=== PATIENT | female | born 1975 | race Caucasian/White ===

== ENCOUNTER 2017-11-23 21:09 | Emergency (ER) | payer BC ==
--- NOTE | 2017-11-23 21:31 | Emergency Department Record ---
History of Present Illness - General Chief complaint: Pain Stated complaint: RT KNEE PAIN/SELLING, NUMBNESSIN TOES Time Seen by Provider: 11/23/17 21:10 Source: Patient Mode of Arrival: Ambulatory Limitations: No limitations - History of Present Illness Initial comments: 42 yo female presents to ED for pain and swelling to the right knee for 1 week. Patient denies injury, but does report a history of arthritis. Patient also denies fevers, chills, or previous surgery to the knee joint. Patient reports that she has been able to ambulate on the knee however it is painful. Patient denies history of Gout.. MD Complaint: Joint pain Onset/Timin -: Week(s) Location: Right, Knee History of Same: No -: Yes Arthralgia Severity scale (1-10): 7 Consistency: Constant, Getting worse Improves with: Rest Worsens with: Walking, Weight bearing Associated Symptoms: Other - Related Data Previous Rx's Medication Instructions Recorded Naproxen [Naprosyn] 500 mg PO Q12H #30 tab. 11/23/17 Allergies Allergy/AdvReac Type Severity Reaction Status Date / Time acetaminophen [From Vicodin] Allergy SWELLING Verified 11/23/17 21:14 (GENERAL) codeine Allergy VOMITING Verified 11/23/17 21:14 hydrocodone [From Vicodin] Allergy SWELLING Verified 11/23/17 21:14 (GENERAL) sulfamethoxazole Allergy HIVES Verified 11/23/17 21:14 [From Bactrim] Tetracyclines Allergy SWELLING Verified 11/23/17 21:14 (GENERAL) trimethoprim [From Bactrim] Allergy HIVES Verified 11/23/17 21:14 Travel Screening - Travel/Exposure Within Last 30 Days Have you traveled within the last 30 days?: No - Travel Symptoms Symptom Screening: None Review of Systems Constitutional: Denies: Chills, Fever, Malaise, Night sweats Eyes: Denies: Eye discharge, Eye pain ENT: Denies: Congestion, Ear pain, Epistaxis Respiratory: Denies: Cough, Dyspnea Cardiovascular: Denies: Chest pain, Dyspnea on exertion Endocrine: Denies: Fatigue, Heat or cold intolerance Gastrointestinal: Denies: Abdominal pain, Nausea, Vomiting Genitourinary: Denies: Incontinence, Retention Musculoskeletal: Reports: Arthralgia, Joint swelling. Denies: Back pain, Gout Skin: Denies: Bruising, Change in color Neurological: Denies: Abnormal gait, Confusion, Headache, Seizure Psychiatric: Denies: Anxiety Hematological/Lymphatic: Denies: Anemia, Blood Clots Past Medical History - SOCIAL HISTORY Smoking Status: Current every day smoker - RESPIRATORY Hx Respiratory Disorders: Yes Hx COPD: Yes Hx Sleep Apnea: Yes Hx of CPAP: No - CARDIOVASCULAR Hx Cardio Disorders: Yes Hx Hypertension: Yes Comment:: high cholesterol ; heart murmurs - NEURO Hx Neuro Disorders: Yes Hx Dizziness: Yes (Ear issues with fluid build up; KAKE) Hx Headaches: Yes - GI Hx GI Disorders: Yes Hx Irritable Bowel: Yes - Hx Genitourinary Disorders: No - ENDOCRINE Hx Endocrine Disorders: No - MUSCULOSKELETAL Hx Musculoskeletal Disorders: Yes Hx Arthritis: Yes - PSYCH Hx Psych Problems: Yes Hx Anxiety: Yes Hx Depression: Yes - HEMATOLOGY/ONCOLOGY Hx Hematology/Oncology Disorders: No Family Medical History Any Significant Family History?: Yes Hx Cancer: Grandparents Hx Heart Disease: Mother Hx HTN: Father, Mother, Grandparents Physical Exam - General General Appearance: Alert, Oriented x3, Cooperative, Mild distress Limitations: No limitations - Head Head exam: Atraumatic, Normocephalic, Normal inspection Head exam detail: negative: Abrasion, Contusion, Hollis's sign, General tenderness, Hematoma, Laceration - Eye Eye exam: Normal appearance. negative: Conjunctival injection, Periorbital swelling, Periorbital tenderness, Scleral icterus - ENT Ear exam: negative: Auricular hematoma, Auricular trauma Nasal Exam: negative: Active bleeding, Discharge, Dried blood, Foreign body Mouth exam: negative: Drooling, Laceration, Muffled voice, Tongue elevation - Neck Neck exam: Normal inspection. negative: Meningismus, Tenderness - Respiratory Respiratory exam: Normal lung sounds bilaterally. negative: Rales, Respiratory distress, Rhonchi, Stridor - Cardiovascular Cardiovascular Exam: Regular rate, Normal rhythm, Normal heart sounds Peripheral Pulses: 3+: Dorsalis Pedis (R) - GI/Abdominal GI/Abdominal exam: Soft. negative: Rebound, Rigid, Tenderness - Rectal Rectal exam: Deferred - exam: Deferred - Extremities Extremities exam: Joint swelling, Tenderness, Other (Mild effusion present to the right knee, no erythema or evidence for septic joint. No calf pain or lower extremity edema. Anterior drawer/posterior drawer tests are negative. ) . negative: Calf tenderness, Pedal edema - Back Back exam: Denies: CVA tenderness (R), CVA tenderness (L) - Neurological Neurological exam: Alert, Oriented X3 - Psychiatric Psychiatric exam: Normal affect, Normal mood - Skin Skin exam: Normal color. negative: Abrasion Type of lesion: negative: abrasion Course Vital Signs 11/23/17 21:15 Temperature 98.4 F Pulse Rate 88 Respiratory 16 Rate Blood Pressure 153/93 Pulse Ox 96 - Reevaluation(s) Reevaluation #1: 11/23/17 21:35 MDM: Patient was seen and examined, no evidence for septic joint on examination. Mild-moderate effusion present. Ligaments are stable on examination. No traumatic injury history, radiographs are unlikely to be of benefit. Furthermore, laboratory studies are unlikely to be of benefit as there is no clinical suspicion for infection. Will place in knee immobilizer with Rx for Naprosyn for probable knee inflammation with instructions to follow-up with her PCP for possible ultrasound to exclude popliteal bursitis. Disposition Disposition: Discharge Clinical Impression: Knee effusion, right Disposition: Home, Self-Care Condition: (2) Stable Instructions: Swollen Knee Joint (ED) Additional Instructions: Return to ED if your symptoms worsen or if you have any concerns. Naprosyn as directed. Follow-up with your family doctor in 3-5 days as directed for possible ultrasound to evaluate for popliteal bursitis. Prescriptions: Naproxen [Naprosyn] 500 mg PO Q12H #30 tab.dr Forms: Patient Portal Access Time of Disposition: 21:30 Quality - Quality Measures Quality Measures: N/A - Blood Pressure Screening Does Patient Have Any of the Following: No Blood Pressure Classification: Hypertensive Reading Systolic Measurement: 153 Diastolic Measurement: 93 Screening for High Blood Pressure: < First Hypertensive BP, F/U Documented > [ [id number]] First Hypertensive Follow-up Interventions: Referral to alternative/primary care provider.
== END 2017-11-23 21:46 | disposition home or self-care (01) ==
LOC: ER 21:09
DX: M25.461 Effusion, right knee (principal); R20.0 Anesthesia of skin; J44.9 Chronic obstructive pulmonary disease, unspecified; F17.210 Nicotine dependence, cigarettes, uncomplicated
CPT/HCPCS: 99282

== ENCOUNTER 2018-01-04 12:33 | Emergency (ER) | payer BC ==
--- NOTE | 2018-01-04 13:08 | Emergency Department Record ---
History of Present Illness - General Chief Complaint: Cough Stated Complaint: LIGHT HEADED,FEVER,COUGH,COPD Time Seen by Provider: 01/04/18 13:00 Source: Patient Mode of Arrival: Ambulatory Limitations: No limitations - History of Present Illness Initial Comments: The patient is here due to a cough and congestion with a runny nose for 4-5 days. She denies any fever, chills, SOB, ARGENIS, or CP. MD Complaint: Cough, Nasal congestion, Rhinorrhea Onset/Timin -: Days(s) - Related Data Home Medications Medication Instructions Recorded Confirmed Last Taken Albuterol Sulfate 0.083% [Neb] 3 ml NEB .EVERY 4-6 HOURS PRN 01/04/18 01/04/18 01/04/18 Albuterol Sulfate [Proair Hfa] 1 - 2 puff IH .EVERY 4-6 HOURS PRN 01/04/1801/0401/04/18 Atorvastatin Calcium [Lipitor] 10 mg PO DAILY 01/04/18 01/04/18 Unknown Dicyclomine HCl 10 mg PO DAILY 01/04/18 01/04/18 Unknown Fluticasone/Salmeterol [Advair 1 each IH BID 01/04/18 01/04/18 01/04/18 100-50 Diskus] Lisinopril 10 mg PO DAILY 01/04/18 01/04/18 Unknown Topiramate [Topamax] 100 mg PO DAILY 01/04/18 01/04/18 Unknown Previous Rx's Medication Instructions Recorded Naproxen [Naprosyn] 500 mg PO Q12H #30 tab. 11/23/17 Azithromycin [Zithromax] 250 mg PO ASDIR #6 tab 01/04/18 Allergies Allergy/AdvReac Type Severity Reaction Status Date / Time acetaminophen [From Vicodin] Allergy SWELLING Verified 01/04/18 12:49 (GENERAL) codeine Allergy VOMITING Verified 01/04/18 12:49 hydrocodone [From Vicodin] Allergy SWELLING Verified 01/04/18 12:49 (GENERAL) sulfamethoxazole Allergy HIVES Verified 01/04/18 12:49 [From Bactrim] Tetracyclines Allergy SWELLING Verified 01/04/18 12:49 (GENERAL) trimethoprim [From Bactrim] Allergy HIVES Verified 01/04/18 12:49 Travel Screening - Travel/Exposure Within Last 30 Days Have you traveled within the last 30 days?: No Review of Systems Constitutional: Reports: Malaise. Denies: Chills, Fever Eyes: Denies: Eye discharge ENT: Reports: Congestion Respiratory: Reports: Cough. Denies: Dyspnea Past Medical History - SOCIAL HISTORY Smoking Status: Current every day smoker Alcohol Use: None Drug Use: None - RESPIRATORY Hx Respiratory Disorders: Yes Hx Bronchitis: Yes Hx COPD: Yes Hx Sleep Apnea: Yes Hx of CPAP: No - CARDIOVASCULAR Hx Cardio Disorders: Yes Hx Hypertension: Yes Comment:: high cholesterol ; heart murmurs - NEURO Hx Neuro Disorders: Yes Hx Dizziness: Yes Hx Headaches: Yes - GI Hx GI Disorders: Yes Hx Irritable Bowel: Yes - Hx Genitourinary Disorders: No - ENDOCRINE Hx Endocrine Disorders: No - MUSCULOSKELETAL Hx Musculoskeletal Disorders: Yes Hx Arthritis: Yes - PSYCH Hx Psych Problems: Yes Hx Anxiety: Yes Hx Depression: Yes - HEMATOLOGY/ONCOLOGY Hx Hematology/Oncology Disorders: No Family Medical History Any Significant Family History?: Yes Hx Cancer: Grandparents Hx Heart Disease: Mother Hx HTN: Father, Mother, Grandparents Physical Exam - General General Appearance: Alert, Oriented x3, Cooperative, No acute distress - Head Head exam: Atraumatic, Normocephalic, Normal inspection - Eye Eye exam: Normal appearance, PERRL, EOMI - ENT ENT exam: Normal exam, Mucous membranes moist, Normal external ear exam, Normal orophraynx, TM's normal bilaterally Throat exam: Normal inspection. negative: Tonsillar erythema, Tonsillar exudate , R peritonsillar mass, L peritonsillar mass - Neck Neck exam: Normal inspection, Full ROM. negative: Lymphadenopathy, Meningismus , Tenderness - Respiratory Respiratory exam: Normal lung sounds bilaterally. negative: Respiratory distress - Cardiovascular Cardiovascular Exam: Regular rate, Normal rhythm, Normal heart sounds - GI/Abdominal GI/Abdominal exam: Soft, Normal bowel sounds. negative: Tenderness - Extremities Extremities exam: Normal inspection, Full ROM, Normal capillary refill. negative: Tenderness - Neurological Neurological exam: Alert. negative: Motor sensory deficit Course Vital Signs 01/04/18 12:45 Temperature 98.5 F Pulse Rate 86 Respiratory 18 Rate Blood Pressure 167/103 Pulse Ox 97 - Reevaluation(s) Reevaluation #1: I did discuss the xrays with the patient and the need for F/U if not better. 01/04/18 14:04 Medical Decision Making - Data Complexity MDM Data: X-Ray Ordered and/or Reviewed - Radiology Data Radiology results: Report reviewed (CXR: Neg) Disposition Disposition: Discharge Clinical Impression: Bronchitis Disposition: Home, Self-Care Condition: (2) Stable Instructions: Cold Symptoms (ED) Additional Instructions: Please take the Zpak as directed and use an OTC cough and cold medicine. Please see your family doctor in 3 days if not better and return to the ER for any worsening symptoms. Prescriptions: Azithromycin [Zithromax] 250 mg PO ASDIR #6 tab Forms: Patient Portal Access Time of Disposition: 14:07 Quality - Quality Measures Quality Measures: N/A - Blood Pressure Screening View Details: Yes Does Patient Have Any of the Following: Active Dx of HTN Blood Pressure Classification: Hypertensive Reading Systolic Measurement: 167 Diastolic Measurement: 103 Screening for High Blood Pressure: Patient Exclusion, Hx of HTN [G9744]
== END 2018-01-04 14:12 | disposition home or self-care (01) ==
LOC: ER 12:33
DX: J20.9 Acute bronchitis, unspecified (principal); J44.9 Chronic obstructive pulmonary disease, unspecified; I10 Essential (primary) hypertension; F17.210 Nicotine dependence, cigarettes, uncomplicated
CPT/HCPCS: 71046; 99283

== ENCOUNTER 2018-08-20 20:56 | Emergency (ER) | payer BC ==
--- NOTE | 2018-08-20 21:21 | Emergency Department Record ---
History of Present Illness - General Chief Complaint: Cough Stated Complaint: COUGH Time Seen by Provider: 08/20/18 21:05 Source: Patient Mode of Arrival: Ambulatory - History of Present Illness Initial Comments: The patient is here because she wants antibiotics due to having 3 weeks of bronchitis. It began with a fever, but now she has no fever. She feels run down with body aches and fatigue and shortness of breath. She has tried OTC nyquil and mucinex with no improvement. At home she uses a nebulizer BID and two inhalers of albuterol and advair. She also see a aquatics specialist in [place] which she has not seen in 1/5 years. She has decreased her smoking from 3 PPD to 1.5 PPD. Her legs chronically ache, but have no new symptoms such as pain or calf tenderness. - Related Data Home Medications Medication Instructions Recorded Confirmed Last Taken Benzonatate 200 mg PO TID 08/20/18 08/20/18 Unknown Eluxadoline [Viberzi] 100 mg PO BID 08/20/18 08/20/18 Unknown Pantoprazole Sodium [Protonix] 40 mg PO DAILY 08/20/18 08/20/18 Unknown Sertraline HCl [Zoloft] 50 mg PO DAILY 08/20/18 08/20/18 Unknown Allergies Allergy/AdvReac Type Severity Reaction Status Date / Time acetaminophen [From Vicodin] Allergy SWELLING Verified 01/04/18 12:49 (GENERAL) codeine Allergy VOMITING Verified 01/04/18 12:49 hydrocodone [From Vicodin] Allergy SWELLING Verified 01/04/18 12:49 (GENERAL) succinylcholine Allergy ANAPHYLAXIS Verified 08/20/18 21:04 sulfamethoxazole Allergy HIVES Verified 01/04/18 12:49 [From Bactrim] Tetracyclines Allergy SWELLING Verified 01/04/18 12:49 (GENERAL) trimethoprim [From Bactrim] Allergy HIVES Verified 01/04/18 12:49 Review of Systems Reviewed: No additional complaints except as noted below Constitutional: Reports: As per HPI. Denies: Chills, Fever, Malaise, Night sweats, Weakness, Weight change Eyes: Reports: As per HPI. Denies: Eye discharge, Eye pain, Photophobia, Vision change ENT: Reports: As per HPI. Denies: Congestion, Dental pain, Ear pain, Epistaxis, Hearing loss, Throat pain Respiratory: Reports: As per HPI. Denies: Cough, Dyspnea, Hemoptysis, Stridor, Wheezes Cardiovascular: Reports: As per HPI. Denies: Arrhythmia, Chest pain, Dyspnea on exertion, Edema, Murmurs, Orthopnea, Palpitations, Paroxysmal nocturnal dyspnea, Rheumatic Fever, Syncope Endocrine: Reports: As per HPI. Denies: Fatigue, Heat or cold intolerance, Polydipsia, Polyuria Gastrointestinal: Reports: As per HPI. Denies: Abdominal pain, Constipation, Diarrhea, Hematemesis, Hematochezia, Melena, Nausea, Vomiting Genitourinary: Reports: As per HPI. Denies: Abnormal menses, Discharge, Dyspareunia, Dysuria, Frequency, Hematuria, Incontinence, Retention, Urgency Musculoskeletal: Reports: As per HPI. Denies: Arthralgia, Back pain, Gout, Joint swelling, Myalgia, Neck pain Skin: Reports: As per HPI. Denies: Bruising, Change in color, Change in hair/nails, Lesions, Pruritus, Rash Neurological: Reports: As per HPI. Denies: Abnormal gait, Confusion, Headache, Numbness, Paresthesias, Seizure, Tingling, Tremors, Vertigo, Weakness Psychiatric: Reports: As per HPI. Denies: Anxiety, Auditory hallucinations, Depression, Homicidal thoughts, Suicidal thoughts, Visual hallucinations Hematological/Lymphatic: Reports: As per HPI. Denies: Anemia, Blood Clots, Easy bleeding, Easy bruising, Swollen glands Past Medical History - SOCIAL HISTORY Smoking Status: Current every day smoker Drug Use: None - RESPIRATORY Hx Respiratory Disorders: Yes Hx Bronchitis: Yes Hx COPD: Yes Hx Sleep Apnea: Yes Hx of CPAP: No - CARDIOVASCULAR Hx Cardio Disorders: Yes Hx Hypertension: Yes Comment:: high cholesterol ; heart murmurs - NEURO Hx Neuro Disorders: Yes Hx Dizziness: Yes Hx Headaches: Yes - GI Hx GI Disorders: Yes Hx Irritable Bowel: Yes - Hx Genitourinary Disorders: No - ENDOCRINE Hx Endocrine Disorders: No - MUSCULOSKELETAL Hx Musculoskeletal Disorders: Yes Hx Arthritis: Yes - PSYCH Hx Psych Problems: Yes Hx Anxiety: Yes Hx Depression: Yes - HEMATOLOGY/ONCOLOGY Hx Hematology/Oncology Disorders: No Family Medical History Hx Cancer: Grandparents Hx Heart Disease: Mother Hx HTN: Father, Mother, Grandparents Physical Exam - General General Appearance: Alert, Oriented x3, Cooperative, No acute distress (seaks full sentences fully without air hunger, retractions, or breathlessness) - Head Head exam: Normal inspection - Eye Eye exam: Normal appearance, PERRL, EOMI. negative: Conjunctival injection, Nystagmus Pupils: Normal accommodation - ENT ENT exam: Normal exam, Mucous membranes moist, Normal external ear exam, Normal orophraynx, TM's normal bilaterally Ear exam: Normal external inspection. negative: External canal tenderness Nasal Exam: Normal inspection. negative: Discharge, Sinus tenderness Mouth exam: Normal external inspection, Tongue normal Teeth exam: Normal inspection. negative: Dental caries Throat exam: Normal inspection. negative: Tonsillar erythema, Tonsillar exudate - Neck Neck exam: Normal inspection, Full ROM. negative: Lymphadenopathy, Meningismus, Tenderness - Respiratory Respiratory exam: Decreased breath sounds, Prolonged expiratory. negative: Accessory muscle use, Chest wall tenderness, Rales, Respiratory distress, Rhonchi, Stridor, Wheezes - Cardiovascular Cardiovascular Exam: Regular rate, Normal rhythm, Normal heart sounds - GI/Abdominal GI/Abdominal exam: Soft. negative: Tenderness - Rectal Rectal exam: Deferred - exam: Deferred - Extremities Extremities exam: Normal inspection, Full ROM, Normal capillary refill. negative: Calf tenderness, Pedal edema, Tenderness - Back Back exam: Reports: Normal inspection, Full ROM. Denies: CVA tenderness (R), CVA tenderness (L), Muscle spasm, Rash noted, Tenderness - Neurological Neurological exam: Alert, CN II-XII intact, Normal gait, Oriented X3, Reflexes normal. negative: Motor sensory deficit - Psychiatric Psychiatric exam: Normal affect, Normal mood - Skin Skin exam: Dry, Intact, Normal color, Warm Course Vital Signs 08/20/18 21:00 Temperature 98.4 F Pulse Rate [ 89 Pulse Ox Probe] Respiratory 24 Rate Blood Pressure 172/89 [Left Arm] Pulse Ox 98 - Reevaluation(s) Reevaluation #1: Lengthy discussion with patient and her about smoking cessation tips and motivators. Patient is ready for DC. CXR report given to patient as negative for pneumonia. 08/20/18 22:28 Medical Decision Making - Management Options MDM Management: No Additional Work-up Planned - Data Complexity MDM Data: X-Ray Ordered and/or Reviewed (CXR two view: Negative for acute abnormality per radiologist.) Disposition Disposition: Discharge Clinical Impression: COPD exacerbation, Encounter for smoking cessation counseling Disposition: Home, Self-Care Condition: (1) Good Instructions: Cold Symptoms (ED), How to Stop Smoking (ED), Secondhand Smoke Exposure in Children (ED) Additional Instructions: Follow up with your [facility] in [place] for further pulmonary care and assistance in smoking cessation. Continue present medications. Quality - Quality Measures Quality Measures: N/A - Blood Pressure Screening Does Patient Have Any of the Following: No Blood Pressure Classification: Pre-Hypertensive BP Reading Systolic Measurement: 172 Diastolic Measurement: 89 Screening for High Blood Pressure: Patient Exclusion, Hx of HTN [G9744]
[2018-08-20] MEDS ORDERED: IPRATROPIUM/ALBUTEROL (0.5MG/3MG) NEB INH ONE (21:30)
[2018-08-20] MEDS ORDERED: METHYLPREDNISOLONE PF 125MG/VIAL IM ONE (21:30)
--- NOTE | 2018-08-23 22:24 | RADIOLOGY REPORT ---
EXAM: CHEST 2 VIEWS HISTORY: COUGH FOR THREE WEEKS. TECHNIQUE: Chest x-ray two views. COMPARISON: 01/04/2018. FINDINGS: The heart is not enlarged and there is no mediastinal mass. There is no acute infiltrate or vascular congestion identified. IMPRESSION: NO ACUTE CARDIAC OR PULMONARY ABNORMALITY IDENTIFIED. JOB NUMBER: [id number] MTDD
== END 2018-08-20 22:30 | disposition home or self-care (01) ==
LOC: ER 20:56
DX: J44.1 Chronic obstructive pulmonary disease with (acute) exacerbation (principal); I10 Essential (primary) hypertension; F17.210 Nicotine dependence, cigarettes, uncomplicated
CPT/HCPCS: 71046; 94640; 96372; 99283; 99284; J2930

== ENCOUNTER 2019-01-22 12:12 | Emergency (ER) | payer BC ==
--- NOTE | 2019-01-22 12:36 | Emergency Department Record ---
History of Present Illness - General Chief Complaint: Fever Stated Complaint: HEADACHE/FEVER/VOMITING Time Seen by Provider: 01/22/19 12:36 Source: Patient, RN notes reviewed - Related Data Home Medications Medication Instructions Recorded Confirmed Last Taken Fluticasone Propion/Salmeterol 1 each IH DAILY 01/22/19 01/22/19 Unknown [Advair 250-50 Diskus] Previous Rx's Medication Instructions Recorded Ibuprofen [Motrin 600Mg] 600 mg PO Q6H #30 tablet 01/22/19 Ibuprofen [Motrin 600Mg] 600 mg PO Q6H #30 tablet 01/22/19 Allergies Allergy/AdvReac Type Severity Reaction Status Date / Time acetaminophen [From Vicodin] Allergy SWELLING Verified 01/04/18 12:49 (GENERAL) codeine Allergy VOMITING Verified 01/04/18 12:49 hydrocodone [From Vicodin] Allergy SWELLING Verified 01/04/18 12:49 (GENERAL) succinylcholine Allergy ANAPHYLAXIS Verified 08/20/18 21:04 sulfamethoxazole Allergy HIVES Verified 01/04/18 12:49 [From Bactrim] Tetracyclines Allergy SWELLING Verified 01/04/18 12:49 (GENERAL) trimethoprim [From Bactrim] Allergy HIVES Verified 01/04/18 12:49 Past Medical History - SOCIAL HISTORY Smoking Status: Current every day smoker Drug Use: None - RESPIRATORY Hx Respiratory Disorders: Yes Hx Bronchitis: Yes Hx COPD: Yes Hx Sleep Apnea: Yes Hx of CPAP: No - CARDIOVASCULAR Hx Cardio Disorders: Yes Hx Hypertension: Yes Comment:: high cholesterol ; heart murmurs - NEURO Hx Neuro Disorders: Yes Hx Dizziness: Yes Hx Headaches: Yes - GI Hx GI Disorders: Yes Hx Irritable Bowel: Yes - Hx Genitourinary Disorders: No - ENDOCRINE Hx Endocrine Disorders: No - MUSCULOSKELETAL Hx Musculoskeletal Disorders: Yes Hx Arthritis: Yes - PSYCH Hx Psych Problems: Yes Hx Anxiety: Yes Hx Depression: Yes - HEMATOLOGY/ONCOLOGY Hx Hematology/Oncology Disorders: No Family Medical History Hx Cancer: Grandparents Hx Heart Disease: Mother Hx HTN: Father, Mother, Grandparents Medical Decision Making - Lab Data Result diagrams: 01/22/19 13:45 01/22/19 13:45 Disposition Clinical Impression: Flank pain, Dehydration, Vomiting, Viral syndrome Disposition: Home, Self-Care Condition: (1) Good Instructions: Viral Syndrome (ED) Additional Instructions: follow up with family in 3 days fluids clear liquids and gradually increase bland foods Prescriptions: Ibuprofen [Motrin 600Mg] 600 mg PO Q6H #30 tablet Ibuprofen [Motrin 600Mg] 600 mg PO Q6H #30 tablet Forms: Patient Portal Access Quality - Quality Measures Quality Measures: N/A - Blood Pressure Screening Does Patient Have Any of the Following: No, Active Dx of HTN Blood Pressure Classification: Hypertensive Reading Systolic Measurement: 191 Diastolic Measurement: 113 Screening for High Blood Pressure: Patient Exclusion, Hx of HTN [G9744]
[2019-01-22 12:58] LABS: INFLUENZA A NEGATIVE (NEGATIVE); INFLUENZA B NEGATIVE (NEGATIVE)
[2019-01-22] MEDS ORDERED: 0.9 % SODIUM CHLORIDE 1,000 ML BAG IV ONE (13:31)
[2019-01-22] MEDS ORDERED: KETOROLAC 30 MG/ML VIAL IVP ONE (13:31)
[2019-01-22] MEDS ORDERED: ONDANSETRON HCL IV 4 MG/2 ML VIAL IV ONE (13:31)
--- NOTE | 2019-01-22 13:51 | Emergency Department Record ---
History of Present Illness - General Chief Complaint: Fever Stated Complaint: HEADACHE/FEVER/VOMITING Time Seen by Provider: 01/22/19 12:36 Source: Patient, RN notes reviewed Mode of Arrival: Ambulatory - History of Present Illness Initial Comments: patient said left flank pain and it started 3-4 days ago and now bilateral lower back pain and now she has vomiting and headache and she felt warm at home yesterday. no tylenol or motrin yesterday or today just her BP medications. No neck pain and moving her neck freely. Onset/Timin -: Days(s) Associated Symptoms: Headache, Sore throat Treatments Prior to Arrival: None - Related Data Home Medications Medication Instructions Recorded Confirmed Last Taken Fluticasone Propion/Salmeterol 1 each IH DAILY 01/22/19 01/22/19 Unknown [Advair 250-50 Diskus] Previous Rx's Medication Instructions Recorded Ibuprofen [Motrin 600Mg] 600 mg PO Q6H #30 tablet 01/22/19 Ibuprofen [Motrin 600Mg] 600 mg PO Q6H #30 tablet 01/22/19 Allergies Allergy/AdvReac Type Severity Reaction Status Date / Time acetaminophen [From Vicodin] Allergy SWELLING Verified 01/04/18 12:49 (GENERAL) codeine Allergy VOMITING Verified 01/04/18 12:49 hydrocodone [From Vicodin] Allergy SWELLING Verified 01/04/18 12:49 (GENERAL) succinylcholine Allergy ANAPHYLAXIS Verified 08/20/18 21:04 sulfamethoxazole Allergy HIVES Verified 01/04/18 12:49 [From Bactrim] Tetracyclines Allergy SWELLING Verified 01/04/18 12:49 (GENERAL) trimethoprim [From Bactrim] Allergy HIVES Verified 01/04/18 12:49 Travel Screening - Travel/Exposure Within Last 30 Days Have you traveled within the last 30 days?: No Review of Systems Reviewed: No additional complaints except as noted below Constitutional: Reports: As per HPI. Denies: Chills, Fever, Malaise, Night sweats, Weakness, Weight change Eyes: Reports: As per HPI. Denies: Eye discharge, Eye pain, Photophobia, Vision change ENT: Reports: As per HPI. Denies: Congestion, Dental pain, Ear pain, Epistaxis, Hearing loss, Throat pain Respiratory: Reports: As per HPI. Denies: Cough, Dyspnea, Hemoptysis, Stridor, Wheezes Cardiovascular: Reports: As per HPI. Denies: Arrhythmia, Chest pain, Dyspnea on exertion, Edema, Murmurs, Orthopnea, Palpitations, Paroxysmal nocturnal dyspnea, Rheumatic Fever, Syncope Endocrine: Reports: As per HPI. Denies: Fatigue, Heat or cold intolerance, Polydipsia, Polyuria Gastrointestinal: Reports: As per HPI. Denies: Abdominal pain, Constipation, Diarrhea, Hematemesis, Hematochezia, Melena, Nausea, Vomiting Genitourinary: Reports: As per HPI. Denies: Abnormal menses, Discharge, Dyspareunia, Dysuria, Frequency, Hematuria, Incontinence, Retention, Urgency Musculoskeletal: Reports: As per HPI. Denies: Arthralgia, Back pain, Gout, Joint swelling, Myalgia, Neck pain Skin: Reports: As per HPI. Denies: Bruising, Change in color, Change in hair/nails, Lesions, Pruritus, Rash Neurological: Reports: As per HPI. Denies: Abnormal gait, Confusion, Headache, Numbness, Paresthesias, Seizure, Tingling, Tremors, Vertigo, Weakness Psychiatric: Reports: As per HPI. Denies: Anxiety, Auditory hallucinations, Dep ression, Homicidal thoughts, Suicidal thoughts, Visual hallucinations Hematological/Lymphatic: Reports: As per HPI. Denies: Anemia, Blood Clots, Easy bleeding, Easy bruising, Swollen glands Past Medical History - SOCIAL HISTORY Smoking Status: Current every day smoker Drug Use: None - RESPIRATORY Hx Respiratory Disorders: Yes Hx Bronchitis: Yes Hx COPD: Yes Hx Sleep Apnea: Yes Hx of CPAP: No - CARDIOVASCULAR Hx Cardio Disorders: Yes Hx Hypertension: Yes Comment:: high cholesterol ; heart murmurs - NEURO Hx Neuro Disorders: Yes Hx Dizziness: Yes Hx Headaches: Yes - GI Hx GI Disorders: Yes Hx Irritable Bowel: Yes - Hx Genitourinary Disorders: No - ENDOCRINE Hx Endocrine Disorders: No - MUSCULOSKELETAL Hx Musculoskeletal Disorders: Yes Hx Arthritis: Yes - PSYCH Hx Psych Problems: Yes Hx Anxiety: Yes Hx Depression: Yes - HEMATOLOGY/ONCOLOGY Hx Hematology/Oncology Disorders: No Family Medical History Hx Cancer: Grandparents Hx Heart Disease: Mother Hx HTN: Father, Mother, Grandparents Physical Exam - General General Appearance: Alert, Oriented x3, Cooperative, No acute distress - Head Head exam: Normal inspection - Eye Eye exam: Normal appearance, PERRL Pupils: Normal accommodation - ENT ENT exam: Normal exam, Mucous membranes moist, Normal external ear exam, Normal orophraynx, TM's normal bilaterally Ear exam: Normal external inspection. negative: External canal tenderness Nasal Exam: Normal inspection. negative: Discharge, Sinus tenderness Mouth exam: Normal external inspection, Tongue normal Teeth exam: Normal inspection. negative: Dental caries Throat exam: Normal inspection. negative: Tonsillar erythema, Tonsillar exudate - Neck Neck exam: Normal inspection, Full ROM. negative: Tenderness - Respiratory Respiratory exam: Normal lung sounds bilaterally. negative: Respiratory distress - Cardiovascular Cardiovascular Exam: Regular rate, Normal rhythm, Normal heart sounds - GI/Abdominal GI/Abdominal exam: Soft, Normal bowel sounds. negative: Tenderness - Rectal Rectal exam: Deferred - exam: Deferred - Extremities Extremities exam: Normal inspection, Full ROM, Normal capillary refill. neg ative: Tenderness - Back Back exam: Reports: Normal inspection, Full ROM. Denies: Muscle spasm, Rash noted, Tenderness - Neurological Neurological exam: Alert, CN II-XII intact, Normal gait, Oriented X3, Reflexes normal. negative: Altered, Motor sensory deficit - Psychiatric Psychiatric exam: Normal affect, Normal mood - Skin Skin exam: Dry, Intact, Normal color, Warm Course Vital Signs 01/22/19 12:34 Temperature 98.4 F Pulse Rate 83 Respiratory 20 Rate Blood Pressure 191/113 Pulse Ox 97 - Reevaluation(s) Reevaluation #1: feeling better 01/22/19 16:15 Medical Decision Making - Lab Data Result diagrams: 01/22/19 13:45 01/22/19 13:45 Lab Results 01/22/19 Range/Units 12:39 Influenza Type A Ag Negative (NEGATIVE) Influenza Type B Ag Negative (NEGATIVE) Disposition Clinical Impression: Flank pain, Dehydration, Viral syndrome Vomiting Qualifiers: Vomiting type: unspecified Vomiting Intractability: non-intractable Nausea presence: with nausea Qualified Code(s): R11.2 - Nausea with vomiting, unspecified Disposition: Home, Self-Care Condition: (1) Good Instructions: Viral Syndrome (ED) Additional Instructions: follow up with family in 3 days fluids clear liquids and gradually increase bland foods Prescriptions: Ibuprofen [Motrin 600Mg] 600 mg PO Q6H #30 tablet Ibuprofen [Motrin 600Mg] 600 mg PO Q6H #30 tablet Forms: Patient Portal Access Quality - Quality Measures Quality Measures: N/A - Blood Pressure Screening Does Patient Have Any of the Following: No, Active Dx of HTN Blood Pressure Classification: Hypertensive Reading Systolic Measurement: 191 Diastolic Measurement: 113 Screening for High Blood Pressure: Patient Exclusion, Hx of HTN [G9744]
[2019-01-22 14:03] LABS: ABSOLUTE NEUTROPHIL COUNT 4.44; BASO % 0.5 % (0-6); EOS % 2.6 % (0-6); GRAN % 55.6 % (47-80); HEMATOCRIT 44.4 % (35.0-47.0); HEMOGLOBIN 14.7 gm/dl (11.6-16.0); LYMPH % 32.5 % (16-45); MEAN CELL VOLUME 92.3 fl (81-97); MEAN CORPUSCULAR HEMOGLOBIN 30.6 pg (27-33); MEAN CORPUSCULAR HGB CONC 33.1 g/dl (32-36); MEAN PLATELET VOLUME 11.1 fl (7.4-10.4); MONO % 8.8 % (0-9); PLATELET COUNT 256 K/uL (130-400); RED BLOOD COUNT 4.81 M/uL (3.80-5.40); RED CELL DISTRIBUTION WIDTH 13.2 % (11.5-14.5)
[2019-01-22 14:16] LABS: BLOOD UREA NITROGEN 4 mg/dL (6-20); CREATININE 0.5 mg/dL (0.5-0.9); EST GLOMERULAR FILTRATION RATE > 60 mL/min
[2019-01-22 14:17] LABS: LIPASE 28 U/L (13-60)
[2019-01-22 14:19] LABS: GLUCOSE,RANDOM 92 mg/dL (74-109)
[2019-01-22 14:21] LABS: ALT/SGPT 7 U/L (<33); AST/SGOT 11 U/L (10.0-35.0)
[2019-01-22 14:22] LABS: ALBUMIN 4.1 g/dL (4.0-5.0); ALKALINE PHOSPHATASE 95 U/L (35-104); BILIRUBIN,DIRECT < 0.2 mg/dL (0-0.3)
--- NOTE | 2019-01-22 14:56 | CT SCAN REPORT ---
EXAMINATION: CT Abdomen and Pelvis without IV Contrast EXAM DATE: 01/22/2019 2:29 PM TECHNIQUE: Standard protocol CT imaging of the abdomen and pelvis was performed without intravenous c ontrast. INDICATION: left flank pain COMPARISON: None ENCOUNTER: Not applicable CT ABDOMEN AND PELVIS FINDINGS: Lung Bases: Included extent of the lung bases are clear. Hepatobiliary: The liver has a normal size with a smooth surface. Normal gallbladder. Pancreas: The pancreas is normal. Spleen: The spleen is not enlarged. Adrenals: The adrenal glands are normal. Gastrointestinal: There is no bowel obstruction or free intraperitoneal air. The appendix is normal. Reproductive Organs: Unremarkable Lymphatic System: There is no adenopathy within the abdomen or pelvis. Vasculature: Normal caliber abdominal aorta Peritoneum: No free fluid, free air, or inflammation Assessment of the solid organs, soft tissues, and vascular structures is overall limited on noncontra st imaging, IMPRESSION: 1. Mild fullness of the bilateral renal collecting systems with no urinary tract calculus identified. If the patient's symptoms persist or worsen, follow-up with urologic consultation and/or CT urogram is suggested. Dictated by: Deena Avila MD on 01/22/2019 2:39 PM. .
[2019-01-22 15:57] LABS: URINE APPEARANCE CLEAR; URINE BILIRUBIN NEGATIVE (NEGATIVE); URINE BLOOD NEGATIVE (NEGATIVE); URINE COLOR YELLOW; URINE GLUCOSE (UA) NEGATIVE (NEGATIVE); URINE KETONE NEGATIVE (NEGATIVE); URINE LEUKOCYTE ESTERASE NEGATIVE (NEGATIVE); URINE NITRITE NEGATIVE (NEGATIVE); URINE PROTEIN NEGATIVE (NEGATIVE); URINE UROBILINOGEN 0.2 E.U./dL (0.20 - 1.00)
== END 2019-01-22 16:38 | disposition home or self-care (01) ==
LOC: ER 12:12
DX: E86.0 Dehydration (principal); B34.9 Viral infection, unspecified; M54.5 Low back pain; R51 Headache; F17.210 Nicotine dependence, cigarettes, uncomplicated; R11.2 Nausea with vomiting, unspecified
CPT/HCPCS: 74176; 80048; 80076; 81003; 83690; 85025; 87400; 96361; 96374; 96375; 99284; J1885; J2405; J7030

== ENCOUNTER 2019-04-11 22:44 | Emergency (ER) | payer SELFPAY ==
[2019-04-11] MEDS ORDERED: IPRATROPIUM/ALBUTEROL (0.5MG/3MG) NEB INH ONE (23:19)
[2019-04-11] MEDS ORDERED: METHYLPREDNISOLONE PF 125MG/VIAL IM ONE (23:19)
[2019-04-11 23:30] LABS: BASO % 0.5 % (0-6); EOS % 1.7 % (0-6); GRAN % 57.8 % (47-80); HEMOGLOBIN 13.9 gm/dl (11.6-16.0); LYMPH % 31.2 % (16-45); MEAN CELL VOLUME 92.7 fl (81-97); MEAN CORPUSCULAR HEMOGLOBIN 30.7 pg (27-33); MEAN CORPUSCULAR HGB CONC 33.1 g/dl (32-36); MEAN PLATELET VOLUME 10.8 fl (7.4-10.4); MONO % 8.8 % (0-9); PLATELET COUNT 222 K/uL (130-400); RED BLOOD COUNT 4.53 M/uL (3.80-5.40); RED CELL DISTRIBUTION WIDTH 12.9 % (11.5-14.5); WHITE BLOOD COUNT W/O DIFF 10.9 K/uL (4.2-12.2)
[2019-04-11] MEDS ORDERED: METHYLPREDNISOLONE PF 125MG/VIAL IVP ONE (23:35)
[2019-04-11 23:44] LABS: BLOOD UREA NITROGEN 5 mg/dL (6-20); CREATININE 0.5 mg/dL (0.5-0.9); EST GLOMERULAR FILTRATION RATE > 60 mL/min
[2019-04-11 23:47] LABS: GLUCOSE,RANDOM 91 mg/dL (74-109)
--- NOTE | 2019-04-12 00:09 | Emergency Department Record ---
History of Present Illness - General Chief Complaint: Shortness of breath Stated Complaint: PAIN IN [place] Time Seen by Provider: 04/11/19 23:10 Source: Patient Mode of Arrival: Ambulatory Limitations: No limitations - History of Present Illness Initial Comments: pt has had tightness in her chest for a wk. she has a productivecough and feels sob MD Complaint: Cough, Shortness of breath Onset/Timin -: Week(s) Severity scale (1-10): 9 Quality: Other Consistency: Constant Improves With: Nothing Worsens With: Nothing Known History Of: COPD Associated Symptoms: Cough, Sputum production - Related Data Allergies Allergy/AdvReac Type Severity Reaction Status Date / Time acetaminophen [From Vicodin] Allergy SWELLING Verified 04/11/19 23:02 (GENERAL) codeine Allergy VOMITING Verified 04/11/19 23:02 hydrocodone [From Vicodin] Allergy SWELLING Verified 04/11/19 23:02 (GENERAL) succinylcholine Allergy ANAPHYLAXIS Verified 04/11/19 23:02 sulfamethoxazole Allergy HIVES Verified 04/11/19 23:02 [From Bactrim] Tetracyclines Allergy SWELLING Verified 04/11/19 23:02 (GENERAL) trimethoprim [From Bactrim] Allergy HIVES Verified 04/11/19 23:02 Travel Screening - Travel/Exposure Within Last 30 Days Have you traveled within the last 30 days?: No - Travel/Exposure Within Last Year Have you traveled outside the [place] in the last year?: No - Additonal Travel Details Have you been exposed to anyone with a communicable illness?: No - Travel Symptoms Symptom Screening: None Review of Systems Reviewed: No additional complaints except as noted below Constitutional: Reports: As per HPI. Denies: Chills, Fever, Malaise, Night sweats, Weakness, Weight change Eyes: Reports: As per HPI. Denies: Eye discharge, Eye pain, Photophobia, Vision change ENT: Reports: As per HPI. Denies: Congestion, Dental pain, Ear pain, Epistaxis, Hearing loss, Throat pain Respiratory: Reports: As per HPI, Cough, Dyspnea. Denies: Hemoptysis, Stridor, Wheezes Cardiovascular: Reports: As per HPI. Denies: Arrhythmia, Chest pain, Dyspnea on exertion, Edema, Murmurs, Orthopnea, Palpitations, Paroxysmal nocturnal dyspnea, Rheumatic Fever, Syncope Endocrine: Reports: As per HPI. Denies: Fatigue, Heat or cold intolerance, Polydipsia, Polyuria Gastrointestinal: Reports: As per HPI. Denies: Abdominal pain, Constipation, Diarrhea, Hematemesis, Hematochezia, Melena, Nausea, Vomiting Genitourinary: Reports: As per HPI. Denies: Abnormal menses, Discharge, Dyspareunia, Dysuria, Frequency, Hematuria, Incontinence, Retention, Urgency Musculoskeletal: Reports: As per HPI. Denies: Arthralgia, Back pain, Gout, Joint swelling, Myalgia, Neck pain Skin: Reports: As per HPI. Denies: Bruising, Change in color, Change in hair/nails, Lesions, Pruritus, Rash Neurological: Reports: As per HPI. Denies: Abnormal gait, Confusion, Headache, Numbness, Paresthesias, Seizure, Tingling, Tremors, Vertigo, Weakness Psychiatric: Reports: As per HPI. Denies: Anxiety, Auditory hallucinations, Depression, Homicidal thoughts, Suicidal thoughts, Visual hallucinations Hematological/Lymphatic: Reports: As per HPI. Denies: Anemia, Blood Clots, Easy bleeding, Easy bruising, Swollen glands Past Medical History - SOCIAL HISTORY Smoking Status: Current every day smoker Alcohol Use: None Drug Use: None - RESPIRATORY Hx Respiratory Disorders: Yes Hx Bronchitis: Yes Hx COPD: Yes Hx Sleep Apnea: Yes Hx of CPAP: No - CARDIOVASCULAR Hx Cardio Disorders: Yes Hx Heart Attack: Yes Hx Hypertension: Yes Hx Irregular Heartbeat: Yes Comment:: high cholesterol ; heart murmurs - NEURO Hx Neuro Disorders: Yes Hx Dizziness: Yes Hx Headaches: Yes - GI Hx GI Disorders: Yes Hx Irritable Bowel: Yes - Hx Genitourinary Disorders: No - ENDOCRINE Hx Endocrine Disorders: No - MUSCULOSKELETAL Hx Musculoskeletal Disorders: Yes Hx Arthritis: Yes - PSYCH Hx Psych Problems: Yes Hx Anxiety: Yes Hx Depression: Yes - HEMATOLOGY/ONCOLOGY Hx Hematology/Oncology Disorders: No Family Medical History Any Significant Family History?: Yes Hx Cancer: Grandparents Hx Heart Disease: Mother Hx HTN: Father, Mother, Grandparents Physical Exam - General General Appearance: Alert, Oriented x3, Cooperative, Mild distress - Head Head exam: Normal inspection - Eye Eye exam: Normal appearance, PERRL, EOMI Pupils: Normal accommodation - ENT ENT exam: Normal exam, Mucous membranes moist, Normal external ear exam, Normal orophraynx Ear exam: Normal external inspection. negative: External canal tenderness Nasal Exam: Normal inspection. negative: Discharge, Sinus tenderness Mouth exam: Normal external inspection, Tongue normal Teeth exam: Normal inspection. negative: Dental caries Throat exam: Normal inspection. negative: Tonsillar erythema, Tonsillar exudate - Neck Neck exam: Normal inspection, Full ROM. negative: Tenderness - Respiratory Respiratory exam: Chest wall tenderness, Decreased breath sounds. negative: Respiratory distress - Cardiovascular Cardiovascular Exam: Regular rate, Normal rhythm, Normal heart sounds - GI/Abdominal GI/Abdominal exam: Soft, Normal bowel sounds. negative: Tenderness - Rectal Rectal exam: Deferred - exam: Deferred - Extremities Extremities exam: Normal inspection, Full ROM, Normal capillary refill. negative: Tenderness - Back Back exam: Reports: Normal inspection, Full ROM. Denies: Muscle spasm, Rash noted, Tenderness - Neurological Neurological exam: Alert, CN II-XII intact, Normal gait, Oriented X3 - Psychiatric Psychiatric exam: Normal affect, Normal mood - Skin Skin exam: Dry, Intact, Normal color, Warm Course Vital Signs 04/11/19 04/11/19 04/11/19 22:53 23:50 23:59 Temperature 99.1 F Pulse Rate 84 Pulse Rate [ 81 77 Left] Respiratory 16 18 20 Rate Blood Pressure 188/105 179/96 [Left Arm] Pulse Ox 98 98 94 L - Reevaluation(s) Reevaluation #1: 04/12/19 01:17 pt feels better Medical Decision Making - Lab Data Result diagrams: 04/11/19 23:20 04/11/19 23:20 Lab Results 04/11/19 04/11/19 04/11/19 Range/Units 23:20 23:20 23:20 WBC 10.9 (4.2-12.2) K/uL RBC 4.53 (3.80-5.40) M/uL Hgb 13.9 (11.6-16.0) gm/dl Hct 42.0 (35.0-47.0) % MCV 92.7 (81-97) fl MCH 30.7 (27-33) pg MCHC 33.1 (32-36) g/dl RDW 12.9 (11.5-14.5) % Plt Count 222 (130-400) K/uL MPV 10.8 H (7.4-10.4) fl Gran % 57.8 (47-80) % Lymphocytes % 31.2 (16-45) % Monocytes % 8.8 (0-9) % Eosinophils % 1.7 (0-6) % Basophils % 0.5 (0-6) % Absolute Neutrophils 6.30 D-Dimer 0.22 (0-0.59) mg/L FEU Sodium 139 (136-145) mmol/L Chloride 100 (98-107) mmol/L Carbon Dioxide 27.0 (22-29) mmol/L Anion Gap 12.0 (7-16) BUN 5 L (6-20) mg/dL Creatinine 0.5 (0.5-0.9) mg/dL Estimated GFR > 60 mL/min Random Glucose 91 (74-109) mg/dL Calcium 8.9 (8.6-10.0) mg/dL Troponin T (0-0.010) ng/mL NT-Pro-B Natriuret Pep 252.90 H (<125) pg/mL 04/11/19 Range/Units 23:20 WBC (4.2-12.2) K/uL RBC (3.80-5.40) M/uL Hgb (11.6-16.0) gm/dl Hct (35.0-47.0) % MCV (81-97) fl MCH (27-33) pg MCHC (32-36) g/dl RDW (11.5-14.5) % Plt Count (130-400) K/uL MPV (7.4-10.4) fl Gran % (47-80) % Lymphocytes % (16-45) % Monocytes % (0-9) % Eosinophils % (0-6) % Basophils % (0-6) % Absolute Neutrophils D-Dimer (0-0.59) mg/L FEU Sodium (136-145) mmol/L Chloride (98-107) mmol/L Carbon Dioxide (22-29) mmol/L Anion Gap (7-16) BUN (6-20) mg/dL Creatinine (0.5-0.9) mg/dL Estimated GFR mL/min Random Glucose (74-109) mg/dL Calcium (8.6-10.0) mg/dL Troponin T < 0.010 (0-0.010) ng/mL NT-Pro-B Natriuret Pep (<125) pg/mL Disposition Disposition: Discharge Clinical Impression: Hypokalemia, Viral syndrome COPD (chronic obstructive pulmonary disease) Qualifiers: COPD type: COPD with acute exacerbation Qualified Code(s): J44.1 - Chronic obstructive pulmonary disease with (acute) exacerbation Disposition: Home, Self-Care Condition: (1) Good Instructions: COPD (Chronic Obstructive Pulmonary Disease) (ED), Viral Syndrome (ED), Hypokalemia (ED) Additional Instructions: follow up with family doctor. return sooner if worse. take meds prescribed. rest Forms: Patient Portal Access, Return to Work/School Quality - Quality Measures Quality Measures: N/A - Blood Pressure Screening Does Patient Have Any of the Following: Active Dx of HTN Blood Pressure Classification: Hypertensive Reading Systolic Measurement: 179 Diastolic Measurement: 96 Screening for High Blood Pressure: Patient Exclusion, Hx of HTN [G9744]
[2019-04-12] MEDS ORDERED: KETOROLAC 30 MG/ML VIAL IVP ONE (00:21)
--- NOTE | 2019-04-12 00:43 | RADIOLOGY REPORT ---
EXAMINATION: Two View Chest Radiographs EXAM DATE: 04/12/2019 12:40 AM TECHNIQUE: Frontal and lateral views INDICATION: Short of breath COMPARISON: 08/20/2018 ENCOUNTER: Not applicable FINDINGS: The heart is normal in size and contour. The mediastinal contours are normal. The lungs are free of infiltrate. There is no pneumothorax or pleural effusion. The pulmonary vascularity is normal. IMPRESSION: Normal chest. Dictated by: Landen Chu DO on 04/12/2019 12:41 AM. .
[2019-04-12] MEDS ORDERED: POTASSIUM CHLORIDE 20 MEQ TABLET PO ONE (00:51)
== END 2019-04-12 01:35 | disposition home or self-care (01) ==
LOC: ER 22:44
DX: J44.1 Chronic obstructive pulmonary disease with (acute) exacerbation (principal); E87.6 Hypokalemia; B34.9 Viral infection, unspecified; R79.89 Other specified abnormal findings of blood chemistry; R06.02 Shortness of breath; I10 Essential (primary) hypertension; F17.210 Nicotine dependence, cigarettes, uncomplicated
CPT/HCPCS: 99284 ×2; 96374; 96375; 85025; 80048; 84484; 85379; 83880; 71046; 94640; 93005; 93010; J1885; J2930